=== PATIENT | male | born 1985 | race Asian ===

== ENCOUNTER 2018-04-08 00:13 | Emergency (ER) | payer OTHER ==
[~2018-04-08] VITALS: Ht 167.6 cm; Wt 90.0 kg
[~2018-04-08 00:13] MED LIST: CHLO10CA6 PO; IBUP-1222 PO; LEVO750T26 PO; LISI-167 PO; ONDA4TAB10 PO; ONDA4TAB7 PO; OXYC5TAB3 PO
[2018-04-08] MEDS ORDERED: LORazepam 1MG TABLET PO ONE (01:00)
[2018-04-08] MEDS ORDERED: LORazepam 1MG TABLET ONE (01:00)
[2018-04-08 01:04] LABS: BASOPHILS # (AUTO) 0.04 x10^3/uL (0-0.1); BASOPHILS % (AUTO) 1 % (0-1); EOSINOPHILS # (AUTO) 0.12 x10^3/uL (0-0.4); EOSINOPHILS % (AUTO) 2 % (1-7); LYMPHOCYTES # (AUTO) 2.94 x10^3/uL (1-3.4); LYMPHOCYTES % (AUTO) 42 % (22-44); MD NO; MEAN CORPUSCULAR HEMOGLOBIN 30.8 pg (27.5-34.5); MEAN PLATELET VOLUME 8.9 fL (7.4-10.4); MONOCYTES # (AUTO) 0.66 x10^3/uL (0.2-0.8); MONOCYTES % (AUTO) 9 % (2-9); NEUTROPHILS # (AUTO) 3.32 x10^3/uL (1.8-6.8); NEUTROPHILS % (AUTO) 47 % (42-75); PLATELET COUNT 307 x10^3/uL (130-400); RED BLOOD COUNT 4.73 x10^6/uL (4.38-5.82); RED CELL DISTRIBUTION WIDTH 12.7 % (9.4-14.8)
[2018-04-08 01:15] LABS: ALBUMIN 4.1 g/dL (3.4-5.0); ANION GAP 10 mmol/L (5-15); CALCIUM 9.1 mg/dL (8.5-10.1); CHLORIDE 100 mmol/L (98-107)
[2018-04-08 01:18] LABS: TROPONIN I < 0.015 ng/mL (0.000-0.045)
[2018-04-08 01:21] VITALS: BP 147/98
== END 2018-04-08 02:10 | disposition home or self-care (01) ==
LOC: ED 00:43
DX: I10 Essential (primary) hypertension (principal); F41.1 Generalized anxiety disorder; E78.00 Pure hypercholesterolemia, unspecified
CPT/HCPCS: 36415; 80048; 82040; 84484; 85025; 93005; 99285